=== PATIENT | male | born 1960 | race African-American/Black ===

== ENCOUNTER 2022-12-19 13:15 | Emergency (ER) | payer MEDICARE, OTHER ==
[~2022-12-19] VITALS: Ht 185.4 cm; Wt 106.6 kg
[2022-12-19] MEDS ORDERED: BACITRACIN ZINC OINT UDPKT TOP NR (16:15)
[2022-12-19 16:35] VITALS: BP 140/76
== END 2022-12-19 16:37 | disposition home or self-care (01) ==
LOC: ER 14:12
DX: S61.315A Laceration without foreign body of left ring finger with damage to nail, initial encounter (principal); W45.8XXA Other foreign body or object entering through skin, initial encounter; Y93.89 Activity, other specified; Y92.89 Other specified places as the place of occurrence of the external cause; Y99.8 Other external cause status
CPT/HCPCS: 11732; 12001; 73120; 99283